=== PATIENT | female | born 1955 | race African-American/Black ===

== ENCOUNTER → 2024-10-04 12:43 | Outpatient (REF) | payer MEDICAID, SELFPAY | LOC: HWRAD 12:43 | DX: R05.1 Acute cough (principal) | CPT/HCPCS: 71046 ==

== ENCOUNTER → 2024-12-16 08:13 | Outpatient (REF) | payer MEDICAID, SELFPAY | LOC: HWWDC 08:13 | PROVIDERS: ATTENDING PHYSICIAN Student in an Organized Health Care Education/Training Program | DX: Z13.820 Encounter for screening for osteoporosis (principal); Z12.31 Encounter for screening mammogram for malignant neoplasm of breast | CPT/HCPCS: 77063; 77067; 77080 ==